=== PATIENT | female | born 1990 | race African-American/Black ===

== ENCOUNTER 2022-08-03 01:35 | Emergency (ER) | payer OTHER ==
[~2022-08-03] VITALS: Ht 167.6 cm; Wt 34.1 kg
[2022-08-03 05:07] LABS: HEMATOCRIT 39.2 % (36.0-47.0); HEMOGLOBIN 12.4 g/dl (12.0-15.5); MEAN CORPUSCULAR HEMOGLOBIN 28.6 pg (27.0-33.0); MEAN CORPUSCULAR HGB CONC 31.6 g/dl (32.0-36.5); MEAN CORPUSCULAR VOLUME 90.5 fl (80.0-96.0); PLATELET COUNT, AUTOMATED 248 10^3/uL (150-450); RED BLOOD COUNT 4.33 10^6/uL (4.00-5.40); WHITE BLOOD COUNT 8.8 10^3/uL (4.0-10.0)
[2022-08-03 05:18] LABS: BLOOD UREA NITROGEN 25 MG/DL (9-23); CALCIUM LEVEL 9.2 MG/DL (8.5-10.1); CARBON DIOXIDE LEVEL 22 MMOL/L (20-31); CHLORIDE LEVEL 108 MMOL/L (98-107); CPK CREATINE PHOSPHOKINASE 82 U/L (34-145); GLOMERULAR FILTRATION RATE > 60.0 (>60); GLUCOSE, FASTING 98 MG/DL (60-100); POTASSIUM SERUM 4.5 MMOL/L (3.5-5.1); SODIUM LEVEL 138 MMOL/L (136-145)
[2022-08-03 05:19] LABS: CK-MB VALUE MASS < 1.0 NG/ML (<3.6); MB/CK RELATIVE INDEX 1.21 (< OR =4)
[2022-08-03 06:28] LABS: CK-MB VALUE MASS < 1.0 NG/ML (<3.6); CPK CREATINE PHOSPHOKINASE 75 U/L (34-145); MB/CK RELATIVE INDEX 1.33 (< OR =4)
[2022-08-03 07:46] VITALS: BP 112/70; TEMP 97.7; O2SAT 100
== END 2022-08-03 09:35 | disposition left against medical advice (07) ==
LOC: M ED 01:35
DX: R07.9 Chest pain, unspecified (principal); Z53.21 Procedure and treatment not carried out due to patient leaving prior to being seen by health care provider

== ENCOUNTER → 2023-06-08 | Outpatient (CLI) | payer OTHER ==
[~2023-06-08] MED LIST: GASTROGRAFIN SOLUTION 30ML As Ordered ONE; ISOVUE-370 76% 100ML VIAL As Ordered ONE
== END ==
LOC: M RAD 14:12
PROVIDERS: ATTEND Plastic Surgery Surgery of the Hand
DX: K42.9 Umbilical hernia without obstruction or gangrene (principal); M54.07 Panniculitis affecting regions of neck and back, lumbosacral region; M62.08 Separation of muscle (nontraumatic), other site

== ENCOUNTER 2024-01-14 11:13 | Emergency (ER) | payer OTHER ==
[~2024-01-14] VITALS: Ht 167.6 cm; Wt 83.9 kg
[2024-01-14] MEDS: KETOROLAC 30 MG/ML 1ML VIAL IM ONE (13:12)
[2024-01-14] MEDS: ACETAMINOPHEN 500 MG TAB PO ONE (13:12)
[2024-01-14 14:01] VITALS: BP 129/56; TEMP 99.5; O2SAT 100
== END 2024-01-14 15:05 | disposition home or self-care (01) ==
LOC: M ED 11:13
DX: S09.90XA Unspecified injury of head, initial encounter (principal); R07.89 Other chest pain; Y04.2XXA Assault by strike against or bumped into by another person, initial encounter; Y92.009 Unspecified place in unspecified non-institutional (private) residence as the place of occurrence of the external cause; Y93.89 Activity, other specified; Y99.9 Unspecified external cause status; Y07.010 Husband, current, perpetrator of maltreatment and neglect
CPT/HCPCS: 70450; 71111; 72125; 72128; 96372; 99283; J1885